=== PATIENT | female | born 1955 | race Caucasian/White ===

== ENCOUNTER → 2016-02-29 | Day surgery (SDC) | payer OTHER ==
[~2016-02-29] VITALS: Ht 162.6 cm; Wt 40.8 kg
[~2016-02-29] MED LIST: GABAPENTIN100 M2 PO; LOPRESSOR50 M1 PO; TYLENOL WITH C1 EACH PO; VALIUM5 M2 PO
--- NOTE | 2016-02-29 13:26 | Operative Report ---
Operative/Inv Procedure Report Surgery Date: 02/29/16 Name of Procedure: Cataract extraction lens implantation left eye Pre-Operative Diagnosis: Age-related cataract left eye 20/60 vision Post-Operative Diagnosis: Same Estimated Blood Loss: none Surgeon/Diver'S Tender: DRE RUIZ,FRANCESCA Hall Anesthesia: local monitored anesthesi Complications: None Operative/Procedure Note Note: The patient was brought to the operating room standard monitoring equipment was attached the patient was prepped and draped in the usual fashion for intraocular surgery. A lid speculum was placed to retract the lids. The case was begun by making a temporal incision with a 2.4 mm keratome. The eye was stabilized with a Duke ring during this incision. 1 mL of non-preserved lidocaine was introduced into the anterior chamber to provide anesthesia. The anterior chamber was then filled and deepened with viscoelastic. A curvilinear capsulorrhexis was achieved using a 30-gauge needle and is a cystotome and capsulorrhexis was finished using a Utrata forceps. A second or paracentesis incision was made temporally with a 1 mm MVR blade. The lens was then hydrodissected with balanced salt solution and found to be rotatable. The lens was emulsified using phacoemulsification and a modified four-quadrant cracking technique. The residual cortical material was removed using automated irrigation and aspiration and as much of the anterior capsular rim was cleaned as well as possible. The posterior capsule was cleaned first with the automated machine on a low setting and then manually with a Keagan squeegee. The capsular bag was deepened with viscoelastic. The lens a Technis 1 22.5 Diopter placed into the bag under direct visualization and rotated so that the haptics were at 12 and 6:00. Viscoelastic was then removed from the eye by flushing it out and then by automated irrigation and aspiration. The eye was pressurized to a normal tone. 1/10 of a cc of vancomycin solution was introduced into the anterior chamber to provide antibiotic prophylaxis. The wounds were sealed by hydrating the stroma adjacent to them and the eye was left at a proper tone after the wounds were checked and found not to be leaking. The lid speculum was removed from the orbit. Antibiotic and steroid drops were placed on the eye and then the eye was shielded. Monitoring equipment was removed from the patient and the patient was removed from the operative suite to the holding area. The patient tolerated the procedure well and will be seen in the office tomorrow.
== END ==
LOC: STS 01:33
DX: H25.9 Unspecified age-related cataract (principal); Z86.79 Personal history of other diseases of the circulatory system; G51.0 Bell's palsy
CPT/HCPCS: J2250; J7315; V2632

== ENCOUNTER → 2016-03-07 | Day surgery (SDC) | payer OTHER ==
[~2016-03-07] VITALS: Ht 162.6 cm; Wt 40.8 kg
--- NOTE | 2016-03-07 13:12 | Operative Report ---
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 A lid speculum was placed to retract the lids. The case was begun by making 2 partial-thickness corneal relaxing incisions at 72. A temporal incision with a 2.4 mm keratome. The eye was stabilized with a Duke ring during this incision. 1 mL of non-preserved lidocaine was introduced into the anterior chamber to provide anesthesia. The anterior chamber was then filled and deepened with viscoelastic. A curvilinear capsulorrhexis was achieved using a 30-gauge needle and is a cystotome and capsulorrhexis was finished using a Utrata forceps. A second or paracentesis incision was made temporally with a 1 mm MVR blade. The lens was then hydrodissected with balanced salt solution and found to be rotatable. The lens was emulsified using phacoemulsification and a modified four-quadrant cracking technique. The residual cortical material was removed using automated irrigation and aspiration and as much of the anterior capsular rim was cleaned as well as possible. The posterior capsule was cleaned first with the automated machine on a low setting and then manually with a Keagan squeegee. The capsular bag was deepened with viscoelastic. The lens a Technis multifocal ZLB00 22.5 Diopter placed into the bag under direct visualization and rotated so that the haptics were at 12 and 6:00. Viscoelastic was then removed from the eye by flushing it out and then by automated irrigation and aspiration. The eye was pressurized to a normal tone. 1/10 of a cc of vancomycin solution was introduced into the anterior chamber to provide antibiotic prophylaxis. The wounds were sealed by hydrating the stroma adjacent to them and the eye was left at a proper tone after the wounds were checked and found not to be leaking. The lid speculum was removed from the orbit. Antibiotic and steroid drops were placed on the eye and then the eye was shielded. Monitoring equipment was removed from the patient and the patient was removed from the operative suite to the holding area. The patient tolerated the procedure well and will be seen in the office tomorrow.
== END ==
LOC: STS 03:15
DX: H25.9 Unspecified age-related cataract (principal); H52.4 Presbyopia; I10 Essential (primary) hypertension; G51.0 Bell's palsy; F41.9 Anxiety disorder, unspecified
CPT/HCPCS: J2250; V2632; V2788-GY

== ENCOUNTER → 2016-03-20 | Day surgery (SDC) | payer OTHER ==
[~2016-03-20] VITALS: Ht 162.6 cm; Wt 40.8 kg
--- NOTE | 2016-03-20 12:34 | Operative Report ---
Operative/Inv Procedure Report Surgery Date: 03/20/16 Name of Procedure: Lens exchange correction of presbyopia left eye Pre-Operative Diagnosis: 20/100 near vision problem with intraocular lens left eye Post-Operative Diagnosis: Same Estimated Blood Loss: none Surgeon/Meter Maker: DRE RUIZ,FRANCESCA Hall Anesthesia: local monitored anesthesi Complications: None Operative/Procedure Note Note: The patient had had a standard monofocal lens placed several weeks ago in this left eye and the distance vision was very good but the patient was surprised at how little she could see at an intermediate or near distance. In the right eye a multifocal lens was placed to try and correct thisand this was successful in the right eye but the patient remained very unhappy with the left eye vision and so she was therefore offered a lens exchange and signed consent to have a Technis multifocal inserted into her left eye The patient was brought to the operating room standard monitoring equipment was attached the patient was prepped and draped in the usual fashion for intraocular surgery. A lid speculum was placed to retract the lids. The case was begun by making a limbal relaxing incision at 110 on the cornea. The main temporal incision was reopened with a cyclo-dialysis spatula. 1 mL of non-preserved lidocaine was introduced into the anterior chamber to provide anesthesia. The anterior chamber was then filled and deepened with viscoelastic. The same spatula was used to reopen the old paracentesis incision. The intra-ocular lens was then dissected from the capsule with viscoelastic and elevated into the anterior chamber. Both haptics were freed. A Vannas scissor was then introduced into the anterior chamber and using counterpressure through the paracentesis site with a second instrument the lens was bisected in half. Each half of the lens was then removed through the main incision. The capsular bag was deepened with viscoelastic. The lens a Technis multifocal ZLB00 23.0 Diopter placed into the bag under direct visualization and rotated so that the haptics were at 12 and 6:00. Viscoelastic was then removed from the eye by flushing it out and then by automated irrigation and aspiration. The eye was pressurized to a normal tone. 1/10 of a cc of vancomycin solution was introduced into the anterior chamber to provide antibiotic prophylaxis. The wounds were sealed by hydrating the stroma adjacent to them and the eye was left at a proper tone after the wounds were checked and found not to be leaking. The lid speculum was removed from the orbit. Antibiotic and steroid drops were placed on the eye and then the eye was shielded. Monitoring equipment was removed from the patient and the patient was removed from the operative suite to the holding area. The patient tolerated the procedure well and will be seen in the office tomorrow.
== END ==
LOC: STS 01:19
DX: T85.898A Other specified complication of other internal prosthetic devices, implants and grafts, initial encounter (principal); H25.12 Age-related nuclear cataract, left eye; I99.9 Unspecified disorder of circulatory system; G51.0 Bell's palsy
CPT/HCPCS: J2250; V2632; V2788-GY